=== PATIENT | male | born 1960 | race Caucasian/White ===

== ENCOUNTER → 2018-04-20 18:52 | Outpatient (CLI) | payer BC, SELFPAY ==
--- NOTE | 2018-04-20 | DI.MRI.S_ITS ---
PROCEDURE: MR HEAD/BRAIN WO CON INDICATIONS: MEMORY LOSS, CONFUSION, POST CONCUSSION SYNDROME TECHNIQUE: Noncontrast axial T1 spin echo, axial T2 fast spin echo, sagittal and axial FLAIR, coronal T2 fast spin echo, axial gradient echo, axial diffusion and ADC through the brain. COMPARISON: None. FINDINGS: Image quality: Excellent. CSF Spaces: Basal cisterns are patent. No extra-axial fluid collections. Ventricles are normal in size and shape. Brain: No intracranial masses or hemorrhage. Goodwin/white matter interface is normal. There is mild cerebral volume loss resulting in prominent cerebral sulci. Brainstem appears normal. Diffusion-weighted images demonstrate no acute ischemic insult. No chronic ischemic insults. Normal intravascular flow voids are present. Skull and face: Calvarium has normal marrow signal. Orbits appear normal. Sinuses: Bilateral frontal, ethmoid, sphenoid and maxillary sinus mucosal thickening. There is an air-fluid level in the left maxillary sinus. The mastoids are clear. IMPRESSION: 1. Mild cerebral volume loss. 2. Bilateral sinusitis. Dictated by: Darvin Kirby M.D. on 04/21/2018 at 18:53 Approved by: Darvin Kirby M.D. on 04/23/2018 at 8:27
== END ==
PROVIDERS: Family Provider Family Medicine; PCP Family Medicine; Visit Provider Family Medicine
DX: F07.81 Postconcussional syndrome (principal); R41.3 Other amnesia; R41.0 Disorientation, unspecified; J32.4 Chronic pansinusitis
CPT/HCPCS: 70551

== ENCOUNTER → 2018-08-15 16:38 | Outpatient (CLI) | payer BC, SELFPAY ==
--- NOTE | 2018-08-15 16:50 | DI.RAD.S_ITS ---
PROCEDURE: XR ANKLE RT MIN 3V INDICATIONS: RT LOWER LEG AND ANKLE PAIN TECHNIQUE: 3 views of the ankle were acquired. COMPARISON: None. FINDINGS: Bones: No fractures or dislocations. Ankle mortise is normally aligned. No suspicious bony lesions. Probably bone island in the medial aspect of the talus. Soft tissues: No tibiotalar joint effusion. Achilles tendon appears normal. IMPRESSION: No fracture or dislocation. If clinical symptoms persist or clinical suspicion for pathology is high, advanced imaging such as MRI is suggested for further evaluation. Dictated by: Darvin Kirby M.D. on 08/15/2018 at 17:43 Approved by: Darvin Kirby M.D. on 08/15/2018 at 17:44
== END ==
PROVIDERS: Family Provider Family Medicine; PCP Family Medicine; Visit Provider Family Medicine
DX: M79.661 Pain in right lower leg (principal); M25.571 Pain in right ankle and joints of right foot
CPT/HCPCS: 73610

== ENCOUNTER → 2019-06-18 11:34 | Outpatient (CLI) | payer BC, SELFPAY ==
[2019-06-18 12:20] LABS: BUN Creatinine Ratio 18.2 (6-22); Blood Urea Nitrogen 20 mg/dL (9-20); Estimated Glomerular Filt Rate > 60.0 mL/min (>60)
--- NOTE | 2019-06-18 12:42 | DI.CT.S_ITS ---
PROCEDURE: CT HEAD/BRAIN WO/W CON INDICATIONS: Headache, Weakness TECHNIQUE: 4.5 mm thick angled axial sections acquired from the foramen magnum to the vertex before and after the administration of intravenous contrast, with coronal and sagittal reformats. For radiation dose reduction, the following was used: automated exposure control, adjustment of mA and/or kV according to patient size. COMPARISON: [facility], MR, MR HEAD/BRAIN WO CON, 04/20/2018, 19:08. FINDINGS: Image quality: Excellent. CSF Spaces: Basal cisterns are patent. No extra-axial fluid collections. Ventricles are normal in size and shape. Brain: No midline shift. No intracranial bleeds or masses. No abnormal intracranial enhancement. Goodwin-white interface appears normal. Skull and face: Calvarium and visualized facial bones appear intact, without suspicious lesions. Sinuses: Mild to moderate mucosal thickening can be seen within the ethmoid air cells. Mild mucosal thickening is seen elsewhere within the paranasal sinuses. No abnormal fluid is seen within the mastoid air cells. IMPRESSION: Normal intracranial study, without an imaging explanation found for the patient's presenting symptoms. Paranasal sinus disease again noted. Dictated by: Micheal Nuñez M.D. on 06/18/2019 at 12:21 Approved by: Micheal Nuñez M.D. on 06/18/2019 at 12:23
== END ==
PROVIDERS: PCP Family Medicine; Visit Provider Family Medicine
DX: R51 Headache (principal)
CPT/HCPCS: 36415; 70470; 82565; 84520; Q9967

== ENCOUNTER → 2019-09-26 06:47 | Outpatient (CLI) | payer BC, SELFPAY ==
--- NOTE | 2019-09-26 | DI.MRI.S_ITS ---
PROCEDURE: MR CERVICAL SPINE WO CON INDICATIONS: NECK PAIN TECHNIQUE: Noncontrast sagittal T1 spin echo and T2 fast spin echo, sagittal STIR, foraminal oblique sagittal T2 fast spin echo, and axial gradient echo or T2 fast spin echo through the cervical spine. COMPARISON: None. FINDINGS: Image quality: Excellent. Alignment and Curvature: There is normal bony alignment. Bone Marrow: Marrow demonstrates normal overall signal. Spinal Cord: Visualized spinal cord has normal size and signal. No cerebellar tonsillar herniation. Paraspinous Soft Tissues: No paravertebral masses. Prevertebral soft tissues are normal in thickness. C2-C3: No canal stenosis or foraminal stenosis. Mild disc bulge. C3-C4: Congenitally short pedicles. Mild central posterior disc protrusion. Mild indentation on the ventral cord. Moderatecanal stenosis. Left facet hypertrophy. Mild bilateral foraminal narrowing. C4-C5: Mild disc bulge. Congenitally short pedicles. Moderate canal stenosis. Bilateral uncovertebral joint hypertrophy and facet hypertrophy. Moderate to severe right foraminal narrowing and moderate left foraminal narrowing with flattening deformity on the bilateral exiting C5 nerve roots. C5-C6: Moderate chronic disc loss. Diffuse posterior osteophyte. Short pedicles. Moderate central canal stenosis. Bilateral lateral recess stenosis. Prominent bilateral uncovertebral joint osteophytes. Severe bilateral foraminal narrowing with impingement on the bilateral C6 nerve roots. C6-C7: Diffuse disc bulge. Prominent bilateral uncovertebral joint hypertrophy. Short pedicles. Moderate to severe canal stenosis. Bilateral facet hypertrophy. Severe bilateral foraminal narrowing with impingement of the bilateral C7 nerve roots. C7-T1: No canal stenosis. Mild bilateral foraminal stenosis. Bilateral facet hypertrophy, marked on the left. IMPRESSION: 1. Extensive cervical spondylitic change. 2. Congenitally short pedicles. 3. Multifactorial canal stenosis is moderate at C3-C4 through C5-C6 and moderate to severe at C6-C7. 4. Extensive multilevel foraminal narrowing as described above. Dictated by: Stu Calderon M.D. on 09/26/2019 at 10:44 Approved by: Stu Calderon M.D. on 09/26/2019 at 10:53
== END ==
PROVIDERS: PCP Family Medicine; Referring Provider Family Medicine; Visit Provider Family Medicine
DX: M54.2 Cervicalgia (principal); M47.812 Spondylosis without myelopathy or radiculopathy, cervical region; M48.02 Spinal stenosis, cervical region
CPT/HCPCS: 72141

== ENCOUNTER → 2021-12-03 16:23 | Outpatient (CLI) | payer BC, SELFPAY ==
--- NOTE | 2021-12-03 16:25 | DI.MRI.S_ITS ---
PROCEDURE: MR SHOULDER LT WO CON INDICATIONS: LEFT SHOULDER PAIN TECHNIQUE: Noncontrast oblique coronal T2 fast spin echo with fat saturation, oblique sagittal T1 spin echo and T2 fast spin echo with fat saturation, axial T1 spin echo and T2 fast spin echo with fat saturation through the shoulder. COMPARISON: None. FINDINGS: Image quality: Excellent. Rotator cuff: Distal supraspinatus tendinosis is seen at its insertion on the humeral head. The infraspinatus, and subscapularis tendons appear intact throughout. No full-thickness rotator cuff tendon rupture. Sagittal images demonstrate no significant muscle atrophy. Bones and bursae: No bone marrow contusions or fractures. Moderate acromioclavicular joint osteoarthritic changes are seen with downward osteophyte formation depressing the musculotendinous junction of supraspinatus. The acromion demonstrates conventional anatomy, without an os acromiale. There is small amount of subacromial subdeltoid bursal fluid. Capsule and soft tissues: Signal abnormality and contour irregularity involving superior anterior labrum is seen at 12 to 2 o'clock position suggestive of superior anterior labral tear. There is also suggestion of anterior-inferior labral tear at 4 to 6 o'clock position. The long head of the biceps tendon appears thickened with intrasubstance T2 hyperintense signal.. The rotator interval appears normal, without fibrosis. The coracohumeral ligament is normal in thickness. IMPRESSION: 1. Distal supraspinatus tendinosis. No full-thickness rotator cuff tendon rupture. No muscle atrophy. 2. Moderate acromioclavicular joint osteoarthritis. Small amount of subacromial subdeltoid bursal fluid. 3. Suggestion of superior anterior labral tear at 12 to 2 o'clock position and anterior-inferior labral tear at 4 to 6 o'clock position. 4. Tendinosis and low-grade intrasubstance partial-thickness tear involving proximal intra-articular portion of long head of biceps. Dictated by: Seven Sanchez M.D. on 12/06/2021 at 8:55 Approved by: Seven Sanchez M.D. on 12/06/2021 at 8:59
== END ==
LOC: MRI 16:24
PROVIDERS: PCP Family Medicine; Referring Provider Family Medicine; Visit Provider Family Medicine
DX: M19.012 Primary osteoarthritis, left shoulder (principal); M25.512 Pain in left shoulder; S46.112A Strain of muscle, fascia and tendon of long head of biceps, left arm, initial encounter; G56.20 Lesion of ulnar nerve, unspecified upper limb
CPT/HCPCS: 73221

== ENCOUNTER → 2024-03-20 06:40 | Outpatient (CLI) | payer OTHER, SELFPAY ==
--- NOTE | 2024-03-20 06:42 | DI.MRI.S_ITS ---
PROCEDURE: MR HEAD/BRAIN WO/W CON INDICATIONS: HX CVA W/RESIDUAL DEFICIT TECHNIQUE: Noncontrast axial T1 spin echo, axial T2 fast spin echo, sagittal and axial FLAIR, coronal T2 fast spin echo, axial gradient echo, axial diffusion and ADC through the brain. After the administration of contrast, axial and coronal and sagittal T1 spin echo with fat saturation through the brain. COMPARISON: None. FINDINGS: Image quality: Excellent. CSF spaces: Basal cisterns are patent. No extra-axial fluid collections. Ventricles are normal in size and shape. Brain: No midline shift. No intracranial bleeds or masses. No abnormal intracranial enhancement. There is marked volume loss of both superior parietal lobes in both posterior superior frontal lobes. There is periventricular white matter chronic small vessel ischemic change. Remote lacunar infarcts within both basal ganglia. Remote infarct within the right su radiata. The brainstem appears normal. Diffusion-weighted images demonstrate no acute infarct. Normal intravascular flow voids are present. Prominent retrocerebellar space. Skull and face: Calvarial marrow is normal in signal. Orbits appear normal. Sinuses: Sinuses and mastoids appear clear. IMPRESSION: 1. No acute infarct, hemorrhage or mass lesion. 2. There is marked volume loss of the superior parietal lobes and posterior superior frontal lobes. 3. White matter changes within the subcortical and periventricular white matter, likely on the basis of chronic small vessel ischemic changes. 4. Remote infarct within the right su radiata and bilateral lacunar infarcts in the basal ganglia. Dictated by: Leighton Melgar M.D. on 03/20/2024 at 10:32 Approved by: Leighton Melgar M.D. on 03/20/2024 at 10:53
== END ==
LOC: MRI 06:41
PROVIDERS: PCP Family Medicine; Referring Provider Family Medicine; Visit Provider Family Medicine
DX: I69.30 Unspecified sequelae of cerebral infarction (principal)
CPT/HCPCS: 70553; A9579

== ENCOUNTER → 2024-05-27 14:54 | Outpatient (CLI) | payer OTHER, SELFPAY ==
--- NOTE | 2024-05-27 14:55 | DI.US.S_ITS ---
PROCEDURE: US ABDOMEN LIMITED INDICATIONS: UMBILICAL HERNIA WO OBSTRUCTION TECHNIQUE: Real-time focused scanning was performed of the ventral abdominal wall, with image documentation. COMPARISON: None. FINDINGS: In the sonographic [id number] along the umbilicus, there is no evidence of a hernia sac. There is 3.3 cm of diastasis between rectus abdominus musculature at the supraumbilical region, which decreases to 1.6 cm when measured inferior to the umbilicus. IMPRESSION: 1. No sonographic evidence of an umbilical hernia. 2. Findings likely kiosk sales representative of diastasis recti. Dictated by: Chai Young M.D. on 05/28/2024 at 11:11 Approved by: Chai Young M.D. on 05/28/2024 at 11:14
== END ==
PROVIDERS: PCP Family Medicine; Referring Provider Family Medicine; Visit Provider Family Medicine
DX: K42.9 Umbilical hernia without obstruction or gangrene (principal)
CPT/HCPCS: 76705

== ENCOUNTER → 2024-08-05 10:29 | Outpatient (CLI) | payer OTHER, SELFPAY ==
--- NOTE | 2024-08-05 10:31 | DI.RAD.S_ITS ---
PROCEDURE: XR RIBS LT MIN 3V W CXR1V INDICATIONS: RIB PAIN TECHNIQUE: 2 views of the ribs were acquired, along with a single view chest. COMPARISON: None. FINDINGS: Surgical changes and devices: None. Bones and chest wall: Acute-subacute, minimally displaced left 7th and 8th anterolateral rib fractures. No other, displaced fractures or dislocations. No suspicious bony lesions. Overlying soft tissues appear unremarkable. Lungs and pleura: No pleural effusions or pneumothorax. Lungs appear clear. Mediastinum: Mediastinal contours appear normal. Heart size is normal. IMPRESSION: Acute-subacute, minimally displaced left 7th and 8th anterolateral rib fractures. Dictated by: Chai Young M.D. on 08/05/2024 at 15:11 Approved by: Chai Young M.D. on 08/05/2024 at 15:13
== END ==
LOC: RAD 10:30
PROVIDERS: PCP Family Medicine; Referring Provider Family Medicine; Visit Provider Family Medicine
DX: R07.81 Pleurodynia (principal)
CPT/HCPCS: 71101